=== PATIENT | male | born 1940 | race African-American/Black ===

== ENCOUNTER 2022-02-20 09:24 | Day surgery (SDC) | payer OTHER, BC ==
[2022-02-15 09:08] VITALS: BMI 24.3
[2022-02-20] MEDS ORDERED: MIDAZOLAM HCL 2 MG/2 ML SINGLE DOSE VIAL ONE (09:26)
[2022-02-20] MEDS: CYCLOPENTOLATE 2% OPHTH SOLN 2 ML BOTTLE ONE ×3 (10:25→10:35)
[2022-02-20] MEDS: CIPROFLOXACIN 0.3% EYE DROPS 5 ML BOTTLE ONE ×3 (10:25→10:35)
[2022-02-20] MEDS: TROPICAMIDE 1% OPHTH SOLN 15 ML BOTTLE ONE ×3 (10:25→10:35)
[2022-02-20] MEDS: PHENYLEPHRINE 2.5% OPHTH SOLN 15 ML BOTTLE ONE ×3 (10:25→10:35)
[2022-02-20 12:36] VITALS: TEMP 98.1
[2022-02-20] MEDS ORDERED: TETRACAINE 0.5% OPHTH SOLN 2 ML BOTTLE ONE (12:52)
[2022-02-20] MEDS ORDERED: LIDOCAINE 1% P/F 10 MG/ML VIAL ONE (12:52)
[2022-02-20] MEDS ORDERED: NEO/POLYMYX B SULF/DEXAMETH OPHTHALMIC 5ML BOTTLE ONE (12:52)
[2022-02-20 13:02] VITALS: BP 145/79; PULSE 67
== END 2022-02-20 13:10 | disposition home or self-care (01) ==
LOC: FASU 09:24
PROVIDERS: ATTEND Ophthalmology
PROC: 08RJ3JZ Replacement of Right Lens with Synthetic Substitute, Percutaneous Approach (ICD-10-PCS; principal; 2022-02-20 11:59)
DX: H26.8 Other specified cataract (principal)
CPT/HCPCS: 66984; V2632